=== PATIENT | female | born 1965 | race Two or more races ===

== ENCOUNTER 2023-01-17 11:54 | Emergency (ER) | payer MEDICAID ==
[~2023-01-17] VITALS: Ht 160 cm; Wt 55.0 kg
[2023-01-17 13:58] VITALS: BP 121/70; PULSE 70; RESP 18; TEMP 97.4; O2SAT 98
[2023-01-17] MEDS ORDERED: PRED20TA2 PO (14:45)
== END 2023-01-17 14:44 | disposition home or self-care (01) ==
LOC: ER 11:54
DX: H61.21 Impacted cerumen, right ear (principal); Z79.899 Other long term (current) drug therapy
CPT/HCPCS: 69209

== ENCOUNTER 2023-07-17 09:11 | Emergency (ER) | payer MEDICAID ==
[~2023-07-17] VITALS: Ht 157.5 cm; Wt 57.4 kg
[~2023-07-17 09:11] MED LIST: PRED20TA2 PO
[2023-07-17 09:46] LABS: Basophils # (auto) 0 10 ^3/uL (0-0.2); Basophils % (auto) 0.1 % (0.0-2.0); Eosinophils # (auto) 0 10 ^3/uL (0-0.8); Eosinophils % (auto) 0.5 % (0.0-7.0); Hematocrit 40.1 % (36.0-46.0); Hemoglobin 13.6 g/dL (12.2-16.2); Lymphocytes # (auto) 1.3 10 ^3/uL (0.4-5.4); Lymphocytes % (auto) 26.9 % (10.0-50.0); Mean Corpuscular Hemoglobin 31.2 pg (28.0-32.0); Mean Corpuscular Volume 91.9 fL (80.0-100.0); Monocytes # (auto) 0.3 10 ^3/uL (0-1.3); Monocytes % (auto) 6.5 % (0.0-12.0); Neutrophils # (auto) 3.1 10 ^3/uL (1.6-8.6); Nucleated Red Blood Cells % 0.1 %; Red Blood Cells 4.36 10^6/uL (4.0-5.20); Red Cell Distribution Width 12.1 % (11.8-14.3); White Blood Cell 4.7 10^3/uL (4.4-10.8)
[2023-07-17 09:48] LABS: INR 0.96 (0.9-1.15); Partial Thromboplastin Time 26.8 SEC (24.5-34.5); Prothrombin Time 10.1 sec (9.3-11.8)
[2023-07-17 09:49] LABS: Urine Bacteria None Seen /hpf (None Seen)
[2023-07-17 09:55] LABS: Alanine Aminotransferase 17 U/L (7-40); Albumin 5.3 g/dL (3.2-4.8); Alkaline Phosphatase 99 U/L (46-116); Anion Gap 4 (5-15); Aspartate Aminotransferase 25 U/L (13-40); BUN/Creatinine Ratio 12.9 (10.0-20.0); Bilirubin, Total 0.7 mg/dL (0.2-1.0); Blood Urea Nitrogen 12 mg/dL (9-23); Calcium 10.3 mg/dL (8.5-10.1); Carbon Dioxide 28 mmol/L (20-30); Chloride 107 mmol/L (98-107); Glucose 114 mg/dL (74-106); Potassium 4.2 mmol/L (3.5-5.1); Sodium 139 mmol/L (136-145); Total Protein 7.9 g/dL (5.7-8.2)
[2023-07-17] MEDS: SODIUM CHLORIDE 0.9% 1,000 ML IVB ONE (09:55)
[2023-07-17 10:07] LABS: Urine Blood TRACE /uL (Negative); Urine Clarity Turbid (Clear); Urine Color Light-Yellow (Yellow); Urine Protein, UAD Negative (Negative); Urine Specific Gravity 1.017 (1.001-1.035); Urine Urobilinogen Normal (Negative); Urine WBC 17 /hpf (0 - 5)
[2023-07-17] MEDS ORDERED: PHEN95TA10 PO (10:26)
[2023-07-17] MEDS ORDERED: ACET500T58 PO (10:26)
[2023-07-17] MEDS ORDERED: CEPH500T PO (10:26)
[2023-07-17 11:14] VITALS: BP 126/74; PULSE 77; RESP 17; TEMP 97.9; O2SAT 100
== END 2023-07-17 11:15 | disposition home or self-care (01) ==
LOC: ER 09:11
DX: N39.0 Urinary tract infection, site not specified (principal)
CPT/HCPCS: 36415; 74176; 80053; 81001; 85025; 85610; 85730; 96360; 99284; J7030

== ENCOUNTER 2023-12-31 11:03 | Inpatient (IN) | payer MEDICAID ==
[~2023-12-31] VITALS: Ht 167.6 cm; Wt 59.9 kg
[~2023-12-31 11:03] MED LIST changes: +ACET500T58 PO; +CEPH500T PO; +PHEN95TA10 PO
[2023-12-31 11:18] VITALS: BP 158/77; PULSE 79; RESP 17; O2SAT 98
[2023-12-31 12:18] LABS: Basophils # (auto) 0 10 ^3/uL (0-0.2); Basophils % (auto) 0.1 % (0.0-2.0); Eosinophils # (auto) 0 10 ^3/uL (0-0.8); Eosinophils % (auto) 0.5 % (0.0-7.0); Hematocrit 39.8 % (36.0-46.0); Hemoglobin 13.8 g/dL (12.2-16.2); Lymphocytes # (auto) 1.3 10 ^3/uL (0.4-5.4); Lymphocytes % (auto) 25.6 % (10.0-50.0); Mean Corpuscular Hemoglobin 32.1 pg (28.0-32.0); Mean Corpuscular Hgb Conc. 34.6 g/dL (32.0-36.0); Mean Corpuscular Volume 92.6 fL (80.0-100.0); Monocytes # (auto) 0.3 10 ^3/uL (0-1.3); Monocytes % (auto) 5.2 % (0.0-12.0); Neutrophils # (auto) 3.6 10 ^3/uL (1.6-8.6); Neutrophils % (auto) 68.6 % (37.0-80.0); Nucleated Red Blood Cells % 0.2 %; Platelet Count (auto) 229 10^3/uL (140-450); Red Blood Cells 4.29 10^6/uL (4.0-5.20); Red Cell Distribution Width 11.7 % (11.8-14.3); White Blood Cell 5.2 10^3/uL (4.4-10.8)
[2023-12-31 12:25] LABS: Chloride 109 mmol/L (98-107); Potassium 3.9 mmol/L (3.5-5.1); Sodium 137 mmol/L (136-145)
[2023-12-31 12:26] LABS: Anion Gap 6 (5-15); Carbon Dioxide 22 mmol/L (20-30)
[2023-12-31 12:31] LABS: BUN/Creatinine Ratio 14.8 (10.0-20.0); Blood Urea Nitrogen 13 mg/dL (9-23); Glucose 105 mg/dL (74-106)
[2023-12-31 13:51] LABS: Urine Bacteria None Seen /hpf (None Seen)
[2023-12-31 14:16] LABS: Urine Blood Negative /uL (Negative); Urine Clarity Clear (Clear); Urine Color Light-Yellow (Yellow); Urine Protein, UAD Negative (Negative); Urine Specific Gravity 1.009 (1.001-1.035); Urine Urobilinogen Normal (Negative); Urine WBC 3 /hpf (0 - 5)
[2023-12-31] MEDS ORDERED: ACETAMINOPHEN 325 MG TAB PO PRN (17:45)
[2023-12-31] MEDS ORDERED: HYDROcodone-ACET 5/325MG TAB PO PRN (17:45)
[2024-01-01] MEDS ORDERED: PANTOPRAZOLE 40 MG TAB PO SCH (06:00)
[2024-01-01] MEDS ORDERED: GEMFIBROZIL 600 MG TAB PO SCH (10:00)
[2024-01-01] MEDS ORDERED: LISINOPRIL 5 MG TAB PO SCH (10:00)
== END 2024-01-01 00:22 | disposition left against medical advice (07) | DRG 241 ==
LOC: ER 11:03 → OVERFLOW 17:47
PROVIDERS: ADMIT Registered Nurse General Practice; ATTEND Registered Nurse General Practice
DX: K27.0 Acute peptic ulcer, site unspecified, with hemorrhage (principal); E78.5 Hyperlipidemia, unspecified; Z53.29 Procedure and treatment not carried out because of patient's decision for other reasons; I16.0 Hypertensive urgency; K21.9 Gastro-esophageal reflux disease without esophagitis; Z79.899 Other long term (current) drug therapy
CPT/HCPCS: 36415; 80048; 81001; 85025; G0378

== ENCOUNTER → 2024-09-04 | Day surgery (SDC) | payer MEDICAID ==
[2024-08-31 14:10] LABS: Basophils # (auto) 0 10 ^3/uL (0-0.2); Basophils % (auto) 0.1 % (0.0-2.0); Eosinophils # (auto) 0 10 ^3/uL (0-0.8); Eosinophils % (auto) 0.7 % (0.0-7.0); Hemoglobin 13.5 g/dL (12.2-16.2); Lymphocytes # (auto) 1.8 10 ^3/uL (0.4-5.4); Lymphocytes % (auto) 33.4 % (10.0-50.0); Mean Corpuscular Hemoglobin 31.6 pg (28.0-32.0); Mean Corpuscular Hgb Conc. 35.5 g/dL (32.0-36.0); Monocytes # (auto) 0.3 10 ^3/uL (0-1.3); Monocytes % (auto) 5.5 % (0.0-12.0); Neutrophils # (auto) 3.3 10 ^3/uL (1.6-8.6); Neutrophils % (auto) 60.3 % (37.0-80.0); Nucleated Red Blood Cells % 0.5 %; Platelet Count (auto) 250 10^3/uL (140-450); Red Blood Cells 4.27 10^6/uL (4.0-5.20); White Blood Cell 5.4 10^3/uL (4.4-10.8)
[2024-08-31 14:24] LABS: INR 0.94 (0.9-1.15); Partial Thromboplastin Time 26.2 SEC (24.5-34.5)
[2024-08-31 14:29] LABS: Alanine Aminotransferase 20 U/L (7-40); Albumin 5.3 g/dL (3.2-4.8); Alkaline Phosphatase 113 U/L (46-116); Anion Gap 10 (5-15); Aspartate Aminotransferase 17 U/L (13-40); BUN/Creatinine Ratio 17.4 (10.0-20.0); Blood Urea Nitrogen 15 mg/dL (9-23); Calcium 10.7 mg/dL (8.7-10.4); Carbon Dioxide 24 mmol/L (20-31); Chloride 106 mmol/L (98-107); Glucose 89 mg/dL (74-106); Potassium 3.8 mmol/L (3.5-5.1); Sodium 140 mmol/L (136-145); Total Protein 7.8 g/dL (5.7-8.2)
[2024-08-31 14:30] LABS: Bilirubin, Total 0.5 mg/dL (0.2-1.0)
[~2024-09-04] VITALS: Ht 157.5 cm; Wt 59.0 kg
[~2024-09-04] MED LIST changes: -ACET500T58 PO; -CEPH500T PO; +GEMF600T PO; +LISI2.5T47 PO; +MULT1TAB95 PO; -PHEN95TA10 PO; -PRED20TA2 PO; +SODIUM CHLORIDE LOCK 10 ML ONE
[2024-09-04 13:20] VITALS: O2SAT 100
[2024-09-04] MEDS: diphenhdrAMINE HCL 50 MG/1 ML VL ONE (13:26)
[2024-09-04] MEDS: MIDAZOLAM HCL 5 MG/ML-1ML VIAL ONE (13:26)
[2024-09-04] MEDS: fentaNYL CITRATE 100 MCG/2 ML VL ONE (13:26)
--- NOTE | 2024-09-04 14:12 | DVHOP2 ---
Operative Report DATE OF OPERATION: 09/04/24 PROCEDURE: Colonoscopy with hot snare polypectomy. PREOPERATIVE INDICATION: The patient is a 58 -year-old female undergoing colonoscopy for colon cancer screening with history of Hemoccult-positive stools POSTOPERATIVE DIAGNOSES: 1. Patient had a 1 cm sessile flat benign-appearing polyp seen in the distal transverse colon that was seen and removed completely via hot snare polypectomy and the specimens were retrieved 2. Patient had a 2 mm benign-appearing rectal polyp that was seen and removed by cold biopsy 3. Mild early sigmoid diverticular disease 4. Trace to 1+ internal hemorrhoids otherwise normal examination up to the cecum and terminal ileum PROCEDURE PERFORMED BY: Bridget Collado M.D. SCOPE: Olympus videocolonoscope. ASA CLASS: 2. PREOPERATIVE MEDICATIONS: Versed 5 mg, Fentanyl 100 mcg, Benadryl 50 mg PROCEDURE IN DETAIL: After obtaining an informed consent, the patient was placed on left lateral decubitus position. She was then sedated with the above medications. A rectal examination was performed that was normal. The colonoscope was then passed through the anus into the rectosigmoid and through the descending, transverse, and ascending colon up to the cecum with visualization of the appendiceal orifice, base of the cecum and the ileocecal valve. The colonoscope was then withdrawn. The distal 5 cm of the terminal ileum were normal No masses or colitis were seen. In the distal transverse colon there was a 1 cm sessile flat polyp This was removed by hot snare polypectomy and the specimens were retrieved. In the rectum there was a 1 mm polyp that was seen and removed by cold biopsy forceps. Patient had a couple of early diverticular pockets noted in the sigmoid and descending colon On retroflexion and straight on view patient had trace to 1+ internal hemorrhoids The patient tolerated the procedure well without difficulty. WITHDRAWAL TIME: 7 minutes QUALITY OF THE PREP: Henderson Bowel Prep score: 9. COMPLICATIONS : None SPECIMENS: Transverse colon polyp Rectal polyp DISPOSITION: Stable D/C to home PLAN: 1. Repeat colonoscopy base on biopsy result in three years 2. Resume GI soft diet advance as tolerated 3. Local anorectal hemorrhoidal care 4. Outpatient follow up with me in 4-6 weeks to review results and discuss further management BRIDGET COLLADO MD September 04, 2024 14:11
[2024-09-04 14:35] VITALS: BP 144/75; PULSE 76; RESP 18; O2SAT 100
== END | disposition home or self-care (01) ==
LOC: GI 10:11
PROVIDERS: ATTEND Internal Medicine Gastroenterology
DX: R19.5 Other fecal abnormalities (principal); D12.3 Benign neoplasm of transverse colon; K62.1 Rectal polyp; K57.30 Diverticulosis of large intestine without perforation or abscess without bleeding; I10 Essential (primary) hypertension; E78.00 Pure hypercholesterolemia, unspecified; Z79.899 Other long term (current) drug therapy; Z98.890 Other specified postprocedural states
CPT/HCPCS: 36415; 45380; 45385; 80053; 85025; 85610; 85730; 88305; J1200; J2250; J3010; J7030